=== PATIENT | male | born 1975 | race Caucasian/White ===

== ENCOUNTER 2024-05-24 07:25 | Day surgery (SDC) | payer MEDICARE ==
[~2024-05-24] VITALS: Ht 175.3 cm; Wt 130.5 kg
[~2024-05-24 07:25] MED LIST: ACET500 PO; FOLI1 PO; HUMIRA40 MG/0.2 SC; LEVSOD100 PO; MORP30ER; MULVITA PO; OMEP20ER PO; OXYC10ER PO; OXYCODONE PO; PRED5 PO; [UNRECOGNIZED DRUG - OTHER] PO
[2024-05-24] MEDS ORDERED: Ropivacaine 0.5% HCl/Pf 123.125 MG,EPINEPHrine HCL 0.25 MG,Ketorolac Tromethamine 15 MG... INFIL SCH (07:55)
[2024-05-24] MEDS ORDERED: CeFAZolin Sodium 3,000 MG in NS 100 ML IV SCH (07:55)
[2024-05-24] MEDS ORDERED: Chlorhexidine Mouth Care 15 ML UDC MT SCH (07:55)
[2024-05-24] MEDS ORDERED: Acetaminophen 500 MG Tab PO SCH ×2 (07:55→16:00)
[2024-05-24] MEDS ORDERED: OxyCODONE HCL 10 MG TABCR PO SCH ×2 (07:55→08:25)
[2024-05-24] MEDS ORDERED: Lactated Ringer's 1,000 ML IV SCH ×2 (07:55→09:55)
[2024-05-24] MEDS ORDERED: Tranexamic Acid 100 ML IV SCH (07:59)
[2024-05-24 08:04] VITALS: BP 141/94
--- NOTE | 2024-05-24 08:08 | NUR ---
Ambulatory in Day Surgery History, Chart, Medications and Allergies reviewed before start of procedure. Pre-Op teaching done. Pt verbalizes understanding. Patient States Post-Procedure ride home has been arranged.
[2024-05-24] MEDS ORDERED: CeFAZolin Sodium 3,000 MG VIAL ONE (08:20)
[2024-05-24] MEDS ORDERED: Metoclopramide HCl 5MG / ML 2ML Vial IV PRN (09:35)
[2024-05-24] MEDS ORDERED: DiphenhydrAMINE HCL 25 MG Cap PO PRN (09:35)
[2024-05-24] MEDS ORDERED: HYDROmorphone HCl/Pf 1MG SYR IV PRN ×3 (09:35→10:00)
[2024-05-24] MEDS ORDERED: Magnesium Hydroxide Conc 10 ML UDC PO PRN (09:35)
[2024-05-24] MEDS ORDERED: Bisacodyl 10 MG Supp PR PRN (09:35)
[2024-05-24] MEDS ORDERED: Ondansetron HCl 2 MG / ML 2ML Vial IV PRN ×2 (09:40→10:00)
[2024-05-24] MEDS ORDERED: Prochlorperazine Edisylate 10 mg Vial IV PRN (09:40)
[2024-05-24] MEDS ORDERED: Midazolam HCl 1MG / ML 2ML Vial ONE (09:43)
[2024-05-24] MEDS ORDERED: FentaNYL Citrate 50 MCG/ML 2 ML Injection ONE (09:43)
[2024-05-24] MEDS ORDERED: OxyCODONE HCL 5 MG TAB PO PRN ×2 (09:45)
[2024-05-24] MEDS ORDERED: Promethazine HCl 25 MG Tab PO PRN (09:45)
[2024-05-24] MEDS ORDERED: propofoL 0 ML IV ONE (09:46)
[2024-05-24] MEDS ORDERED: Ondansetron HCl 2 MG / ML 2ML Vial ONE (09:54)
[2024-05-24] MEDS ORDERED: Dexamethasone Sod Phos 10 MG/ML 1ML VIAL ONE (09:54)
[2024-05-24] MEDS ORDERED: FentaNYL Citrate 50 MCG/ML 2 ML Injection IV PRN ×2 (10:00)
[2024-05-24] MEDS ORDERED: ePHEDrine Sulfate 50 MG/ML 1ML Injection IV PRN (10:00)
--- NOTE | 2024-05-24 10:24 | NUR ---
DR ISAAC AT BEDSIDE TO INFORM PATIENT THAT SURGERY IS CANCELLED DUE TO EQUIPMENT FAILURE. DISCHARGE HOME WITH MOTHER JOAN. PT STABLE AND A&O S/P MEDICATED WITH OXYCONTIN AND VERSED IV. Patient up to Ambulate independently. Gait steady.
[2024-05-24 10:30] VITALS: BP 133/88
[2024-05-24] MEDS ORDERED: Ketorolac Tromethamine 15mg Vial IV SCH (12:00)
[2024-05-24] MEDS ORDERED: Docusate Sodium 100 MG Cap PO SCH (21:00)
[2024-05-25] MEDS ORDERED: Levothyroxine Sodium 0.1 MG Tab PO SCH (06:00)
[2024-05-25] MEDS ORDERED: Aspirin 81 MG Chew PO SCH (09:00)
[2024-05-25] MEDS ORDERED: Multivitamins 1 Tab PO SCH (09:00)
[2024-05-25] MEDS ORDERED: Folic Acid 1 MG TAB PO SCH (09:00)
== END 2024-05-24 22:57 | disposition home or self-care (01) ==
LOC: ORSCMMR 07:25 → ORD 09:15 → ORSCMMR 09:15
DX: M16.11 Unilateral primary osteoarthritis, right hip (principal); Z53.9 Procedure and treatment not carried out, unspecified reason
CPT/HCPCS: A9270; J0171; J0690; J0735; J1100; J1885; J2250; J2405; J2704; J2795; J3010; J7120

== ENCOUNTER 2024-05-31 07:09 | Day surgery (SDC) | payer MEDICARE ==
[2024-05-31] VITALS (11 sets, daily range): BP systolic 82–131; BP diastolic 53–97
[~2024-05-31] VITALS: Ht 182.9 cm; Wt 130.7 kg
[2024-05-31] MEDS ORDERED: Chlorhexidine Mouth Care 15 ML UDC MT SCH (07:15)
[2024-05-31] MEDS ORDERED: Lactated Ringer's 1,000 ML IV SCH ×2 (07:15→12:20)
[2024-05-31] MEDS ORDERED: CeFAZolin Sodium 3,000 MG in NS 100 ML IV SCH ×2 (07:15→18:00)
[2024-05-31] MEDS ORDERED: OxyCODONE HCL 10 MG TABCR PO SCH ×2 (07:15→07:50)
[2024-05-31] MEDS ORDERED: Acetaminophen 500 MG Tab PO SCH ×2 (07:15→16:00)
[2024-05-31] MEDS ORDERED: Tranexamic Acid 100 ML IV SCH (07:15)
[2024-05-31] MEDS ORDERED: Ropivacaine 0.5% HCl/Pf 123.125 MG,EPINEPHrine HCL 0.25 MG,Ketorolac Tromethamine 15 MG... INFIL SCH (07:20)
--- NOTE | 2024-05-31 08:26 | NUR ---
History, Chart, Medications and Allergies reviewed before start of procedure. Pre-Op teaching done. Pt verbalizes understanding. Ambulatory in Day Surgery WITH CANE.
[2024-05-31] MEDS ORDERED: CeFAZolin Sodium 3,000 MG VIAL ONE (09:10)
[2024-05-31] MEDS ORDERED: Hydrocortisone Sod Succinate 100 MG Vial ONE (09:41)
[2024-05-31] MEDS ORDERED: Midazolam HCl 1MG / ML 2ML Vial ONE (09:42)
[2024-05-31] MEDS ORDERED: Magnesium Hydroxide Conc 10 ML UDC PO PRN (09:50)
[2024-05-31] MEDS ORDERED: Metoclopramide HCl 5MG / ML 2ML Vial IV PRN ×2 (09:50→11:05)
[2024-05-31] MEDS ORDERED: Ondansetron HCl 2 MG / ML 2ML Vial IV PRN ×2 (09:50→11:10)
[2024-05-31] MEDS ORDERED: DiphenhydrAMINE HCL 25 MG Cap PO PRN (09:50)
[2024-05-31] MEDS ORDERED: HYDROmorphone HCl/Pf 1MG SYR IV PRN ×3 (09:50→11:05)
[2024-05-31] MEDS ORDERED: propofoL 150 ML IV ONE (10:20)
[2024-05-31] MEDS ORDERED: FentaNYL Citrate 50 MCG/ML 2 ML Injection IV PRN ×2 (11:10)
[2024-05-31] MEDS ORDERED: ePHEDrine Sulfate 50 MG/ML 1ML Injection IV PRN (11:10)
[2024-05-31] MEDS ORDERED: Albuterol 2.5 MG/3 ML VIAL INH PRN (11:10)
[2024-05-31] MEDS ORDERED: propofoL 60 ML IV ONE (11:46)
[2024-05-31] MEDS ORDERED: propofoL 40 ML IV ONE (12:14)
[2024-05-31] MEDS ORDERED: Bisacodyl 10 MG Supp PR PRN (12:15)
[2024-05-31] MEDS ORDERED: Phenylephrine HCl 10mg/ml 1 ml Vial ONE (12:15)
[2024-05-31] MEDS ORDERED: Dexamethasone Sod Phos 10 MG/ML 1ML VIAL ONE (12:15)
[2024-05-31] MEDS ORDERED: Ondansetron HCl 2 MG / ML 2ML Vial ONE (12:15)
[2024-05-31] MEDS ORDERED: Ketorolac Tromethamine 30mg Vial ONE (12:15)
[2024-05-31] MEDS ORDERED: Phenylephrine HCl 100 MCG/ML-NS 10MLSYR (1MG/10ML) ONE (12:16)
[2024-05-31] MEDS ORDERED: Promethazine HCl 25 MG Tab PO PRN (12:25)
[2024-05-31] MEDS ORDERED: OxyCODONE HCL 5 MG TAB PO PRN ×2 (12:25)
[2024-05-31] MEDS ORDERED: Prochlorperazine Edisylate 10 mg Vial IV PRN (12:25)
[2024-05-31] MEDS ORDERED: Labetalol HCL 5 MG/ML 4ML Injection (Single Dose) ONE (12:34)
[2024-05-31] MEDS ORDERED: FentaNYL Citrate 50 MCG/ML 2 ML Injection ONE (13:02)
[2024-05-31] MEDS ORDERED: HYDROmorphone HCl/Pf 1MG SYR ONE (13:17)
--- NOTE | 2024-05-31 13:42 | NUR ---
POST OP: PT ARRIVED TO ROOM 220 POST RIGHT KYLIE. A+O, TEARFUL. STATES THAT HE DOES NOT WANT TO STAY IN THE HOSPITAL BECAUSE HE CAN'T AFFORD IT. EDUCATED TO PLAN OF CARE AND REASONS FOR STAYING. THIS RN CONTACTED CARE MANAGEMENT TO ASSIST PT IF ABLE. HEMOVAC TO RIGHT HIP WITH SMALL AMT RED DRAINAGE. PAS, TEDS AND POLAR PACK IN PLACE. IV IN LEFT HAND INFUSING. ICE WATER GIVEN. PT CAN WIGGLES TOES BUT HAS DULL SENSATION IN BL FEET. CIRC WNL. MOTHER AT BEDSIDE. WILL CONT TO MONITOR.
--- NOTE | 2024-05-31 16:37 | NUR ---
THERAPY: PT IN TO WORK WITH PATIENT TO AMBULATE AND SIT IN CHAIR. PT MEDICATED FOR PAIN PRIOR TO MOBILIZATION. WILL MONITOR PROGRESS.
[2024-05-31] MEDS ORDERED: Ketorolac Tromethamine 15mg Vial IV SCH (18:00)
--- NOTE | 2024-05-31 19:08 | NUR ---
PT HAS BEEN STABLE POST OP DAY 0 FOR RIGHT TOTAL HIP. PT WORKED WELL WITH THERAPY AND STAFF TO AMBULATE HALLWAYS AND SIT IN CHAIR. PT PAIN CONTROLLED WITH PRN MEDS AND SCHEDULED TYLENOL. PT DOES NOT TAKE NSAIDS, SO TORADOL HELD. PT TOLERATING DIET. LOW VOLUME TOLERANCE R/T BARIATRIC SURGERY. DRINKING MEAL REPLACEMENT SHAKES PER HOME ROUTINE. PT VOIDED WELL THIS EVENING. HEMOVAC WITH 200CC OUT. DRESSING REMAINS CDI. AM LABS TO REPEAT.
[2024-05-31] MEDS ORDERED: Docusate Sodium 100 MG Cap PO SCH (21:00)
[2024-06-01 00:14] VITALS: BP 135/91
[2024-06-01 02:33] VITALS: BP 108/79
[2024-06-01 05:43] LABS: BASOPHILS ABSOLUTE AUTO 0.01 K/mm3 (0.00-0.23); BASOPHILS PERCENT AUTO 0 % (0-2); EOSINOPHILS ABSOLUTE AUTO 0.01 K/mm3 (0.00-0.68); EOSINOPHILS PERCENT AUTO 0 % (0-6); Hematocrit 31.8 % (37.0-53.0); Hemoglobin 10.8 g/dL (13.5-17.5); IMMATURE GRAN ABSOLUTE AUTO 0.03 K/mm3 (0.00-0.10); IMMATURE GRAN PERCENT AUTO 0 % (0-1); LYMPHOCYTES ABSOLUTE AUTO 0.84 K/mm3 (0.84-5.20); LYMPHOCYTES PERCENT AUTO 10 % (21-46); MONOCYTES ABSOLUTE AUTO 0.69 K/mm3 (0.16-1.47); MONOCYTES PERCENT AUTO 8 % (4-13); Mean Corpuscular HGB 30.4 pg (26.0-34.0); Mean Corpuscular Volume 90 fL (80-100); Mean Platelet Volume 10.6 fL (9.1-12.4); NEUTROPHILS ABSOLUTE AUTO 6.69 K/mm3 (1.96-9.15); NEUTROPHILS PERCENT AUTO 81 % (41-73); Platelet Count 197 K/mm3 (150-400); RDW Coefficient Variation 13.2 % (11.7-14.2); RDW Standard Deviation 43.5 fL (35.1-46.3); Red Blood Cell Count 3.55 M/mm3 (4.30-5.90); White Blood Cell Count 8.27 K/mm3 (4.00-11.30)
--- NOTE | 2024-06-01 05:45 | NUR ---
EVENT SPECIALIST SUMMARY PT IS POD 1 FOR R KYLIE. HEMOVAC DRAIN IN PLACE AND DRAINED 130 ML RED DRAINAGE THROUGH SHIFT. PAIN HAS BEEN WELL CONTROLLED WITH SCHEDULED TORADOL AND PRN OXYCODONE. HAS BEEN UP TO THE BATHROOM ONCE TO VOID, DID WELL WITH AMBULATION. PT HOPEFUL FOR DISCHARGE TODAY. VSS, WILL CONTINUE TO MONITOR.
[2024-06-01] MEDS ORDERED: Levothyroxine Sodium 0.1 MG Tab PO SCH (06:00)
[2024-06-01 06:14] LABS: Bun/Creatinine Ratio 31.7 (12.0-20.0); Calcium, Blood 8.3 mg/dL (8.5-10.1); Creatinine, Blood 0.63 mg/dL (0.60-1.20); Potassium, Blood 3.6 mmol/L (3.5-5.5)
[2024-06-01 07:13] VITALS: BP 134/82
[2024-06-01] MEDS ORDERED: Folic Acid 1 MG TAB PO SCH (09:00)
[2024-06-01] MEDS ORDERED: Aspirin 81 MG Chew PO SCH (09:00)
[2024-06-01] MEDS ORDERED: Multivitamins 1 Tab PO SCH (09:00)
[2024-06-01] MEDS ORDERED: PredniSONE 5 MG Tab PO SCH (09:00)
[2024-06-01] MEDS ORDERED: ADALIMUMAB 40 MG/0.8 ML SC SCH (12:00)
--- NOTE | 2024-06-01 12:05 | NUR ---
HEMOVAC DRAINAGE 35CC AT NOON. HEMOVAC REMOVED PER ORDER. DRAIN SPONGES TO FORMER HEMOVAC SITE. TEACHING COMPLETE. CARE MANAGEMENT PAGED PRIOR TO DC PER PT/MOTHER REQUEST.
--- NOTE | 2024-06-01 13:42 | NUR ---
DC INSTRUCT REVIEWED WITH PT AND MOTHER. STATED UNDERSTANDING. IV DC'D INTACT. DISCHARGE PAPERWORK DISPENSED. DICHARGED TO POV VIA W/C WITH PRINTED INSTRUCT.
== END 2024-06-01 13:50 | disposition home or self-care (01) ==
LOC: ORSCMMR 07:09 → ORD 09:15 → ORSCMMR 09:15 → ORD 10:15 → SURS 13:48 → ORSCMMR 06-01 13:50
PROVIDERS: Orthopaedic Surgery
PROC: 0SR90J9 Replacement of Right Hip Joint with Synthetic Substitute, Cemented, Open Approach (ICD-10-PCS; principal; 2024-05-31 09:15)
DX: M16.11 Unilateral primary osteoarthritis, right hip (principal); E66.01 Morbid (severe) obesity due to excess calories; Z68.39 Body mass index [BMI] 39.0-39.9, adult; E03.9 Hypothyroidism, unspecified; K21.9 Gastro-esophageal reflux disease without esophagitis; Z79.899 Other long term (current) drug therapy
CPT/HCPCS: 36415; 72170; 80048; 85025; 97110; 97116; 97161; 97530; A9270; C1713; C1776; J0171; J0690; J0735; J1100; J1171; J1720; J1885; J2250; J2371; J2405; J2704; J2795; J3010; J7120; J7512